=== PATIENT | male | born 1990 | race Hispanic/Latino ===

== ENCOUNTER 2023-05-12 12:07 | Emergency (ER) | payer SELFPAY ==
[2023-05-12] MEDS ORDERED: KETOROLAC 30 MG/ML INJ ONE (12:50)
[2023-05-12] MEDS ORDERED: ACETAMINOPHEN 500 MG TAB ONE (12:50)
[2023-05-12] MEDS ORDERED: DIPHENHYDRAMINE 50 MG/ML VIAL ONE (12:50)
[2023-05-12] MEDS ORDERED: METOCLOPRAMIDE 10 MG/2mL INJ ONE (12:50)
[2023-05-12] MEDS ORDERED: NA CHLORIDE 0.9% 1,000 ML ONE (12:50)
--- NOTE | 2023-05-12 13:02 | RAD REPORT ---
EXAM DESCRIPTION: CT - Head Brain Wo Cont - 05/12/2023 12:36 pm CLINICAL HISTORY: Headache COMPARISON: None TECHNIQUE: Computed axial tomography of the head was obtained. IV contrast was not requested. All CT scans are performed using dose optimization technique as appropriate and may include automated exposure control or mA/KV adjustment according to patient size. FINDINGS: An intracranial bleed is not seen The ventricles are normal in caliber No extra-axial fluid collection is noted. No significant hypodensity within the brain noted Small amount of fluid right maxillary sinus. Mucous retention cyst left maxillary sinus Sub centimeter right occipital scalp lesion is nonspecific IMPRESSION: No acute intracranial abnormality is seen If patient's symptoms persist MRI of the brain would be recommended Fluid within the right maxillary sinus may indicate acute sinusitis
--- NOTE | 2023-05-12 13:24 | EDPHYS ---
Physician Documentation [facility] Name: Ramon Almonte Age: 33 yrs Sex: Male : 1990 Arrival Date: 05/12/2023 Time: 12:07 Bed 18 Private MD: ED Physician Hernando Albarran HPI: 05/12 12:34 This 33 yrs old Male presents to ER via Ambulatory with complaints of Headache.rt 12:34 Patient presents to the ED with intermittent right-sided headache behind his right eye rt for the past 3 days. Patient obtained modest relief with taking Excedrin, Sudafed. He states that he is developing a sinus headache. Reports mild nausea. Denies other acute complaints at this time. Denies neck stiffness. States that the pain persisted to today prompting him to come to the ED for further evaluation. Symptoms are moderate severity, nonradiating, moderate in severity, no other aggravating alleviating factors. Historical: - Allergies: 12:16 No Known Allergies; hb - Home Meds: 12:16 None [Active]; hb - PMHx: 12:16 None; hb - PSHx: 12:16 None; hb - Immunization history:: Adult Immunizations up to date. - Social history:: Smoking status: Patient denies any tobacco usage or history of. - Family history:: not pertinent. ROS: 12:34 Constitutional: Negative for fever, chills, and weight loss, Cardiovascular: Negative rt for chest pain, palpitations, and edema, Respiratory: Negative for shortness of breath, cough, wheezing, and pleuritic chest pain, MS/Extremity: Negative for injury and deformity, Skin: Negative for injury, rash, and discoloration, Neuro: Negative for headache, weakness, numbness, tingling, and seizure, Psych: Negative for depression, anxiety, suicide ideation, homicidal ideation, and hallucinations. 12:34 Abdomen/GI: Positive for nausea, Negative for abdominal pain. 12:34 Neuro: Positive for headache, Negative for altered mental status. Exam: 12:34 Constitutional: This is a well developed, well nourished patient who is awake, alert, rt and in no acute distress. Head/Face: Normocephalic, atraumatic. Chest/axilla: Normal chest wall appearance and motion. Nontender with no deformity. No lesions are appreciated. Cardiovascular: Regular rate and rhythm with a normal S1 and S2. No gallops, murmurs, or rubs. Normal PMI, no JVD. No pulse deficits. Respiratory: Lungs have equal breath sounds bilaterally, clear to auscultation and percussion. No rales, rhonchi or wheezes noted. No increased work of breathing, no retractions or nasal flaring. Abdomen/GI: Soft, non-tender, with normal bowel sounds. No distension or tympany. No guarding or rebound. No evidence of tenderness throughout. Skin: Warm, dry with normal turgor. Normal color with no rashes, no lesions, and no evidence of cellulitis. MS/ Extremity: Pulses equal, no cyanosis. Neurovascular intact. Full, normal range of motion. Neuro: Awake and alert, GCS 15, oriented to person, place, time, and situation. Cranial nerves II-XII grossly intact. Motor strength 5/5 in all extremities. Sensory grossly intact. Cerebellar exam normal. Normal gait. Psych: Awake, alert, with orientation to person, place and time. Behavior, mood, and affect are within normal limits. Vital Signs: 12:13 BP 151 / 96; Pulse 65; Resp 16; Temp 97.8(TE); Pulse Ox 100% on R/A; Weight 90.72 kg; hb Height 5 ft. 7 in. ; Pain 10/10; 12:45 BP 130 / 80; Pulse 71; Resp 17; Pulse Ox 100% on R/A; Pain 7/10; me1 13:43 BP 122 / 65; Pulse 61; Resp 16; Pulse Ox 100% on R/A; Pain 4/10; me1 12:13 Body Mass Index 31.32 (90.72 kg, 170.18 cm) hb 12:13 Pain Scale: Adult hb 12:45 Pain Scale: Adult me1 13:43 Pain Scale: Adult me1 MDM: 12:17 Patient medically screened. rt 13:36 Differential diagnosis: Intracranial hemorrhage, sinus headache, cluster headache, rt migraine headache, tension headache. Data reviewed: vital signs, nurses notes, radiologic studies. Independent interpretation of the following test(s) in the Emergency Department CT Scan: My interpretation is No hemorrhage seen on monitor rotation of the CT scan images. Test considered but Not performed: Labs: Stable vital signs, benign physical examination, neck supple, full range of motion, no meningismus. Low suspicion for meningitis, encephalitis, lumbar puncture not indicated. Counseling: I had a detailed discussion with the patient and/or guardian regarding the historical points, exam findings, and any diagnostic results supporting the discharge/admit diagnosis, radiology results, the need for outpatient follow up, to return to the emergency department if symptoms worsen or persist or if there are any questions or concerns that arise at home. Response to treatment: the patient's symptoms have markedly improved after treatment. 05/12 12:23 Order name: CT Head Brain wo Cont; Complete Time: 13:07 rt Administered Medications: 12:59 Drug: metoCLOPramide IVP 10 mg Route: IVP; Site: right antecubital; me1 13:27 Follow up: Response: No adverse reaction; Pain is decreased me1 12:59 Drug: NS 0.9% IV 1000 ml Route: IV; Rate: 1 bolus; Site: right antecubital; me1 13:49 Follow up: IV Status: Completed infusion; IV Intake: 100ml me1 12:59 Drug: Ketorolac IVP 15 mg Route: IVP; Site: right antecubital; me1 13:27 Follow up: Response: No adverse reaction; Pain is decreased me1 12:59 Drug: diphenhydrAMINE IVP 25 mg Route: IVP; Site: right antecubital; me1 13:27 Follow up: Response: No adverse reaction; Pain is decreased me1 12:59 Not Given (Patient Refused): Acetaminophen PO 1000 mg PO once me1 Disposition Summary: 05/12/23 13:23 Discharge Ordered Location: Home rt Problem: new rt Symptoms: have improved rt Condition: Stable rt Diagnosis - Acute maxillary sinusitis rt - Headache rt Followup: rt - With: Private Physician - When: 2 - 3 days - Reason: Discharge Instructions: - Discharge Summary Sheet rt - Sinus Headache rt Forms: - Medication Reconciliation Form rt - Thank You Letter rt - Antibiotic Education rt - Prescription Opioid Use rt - Patient Portal Instructions rt - Leadership Thank You Letter rt Prescriptions: - azithromycin 250 mg Oral tablet - take 1 dose pack by ORAL route as directed on dose pack For 250 mg dose pack: rt take 500 mg today (day 1), then 250 mg for 4 days (days 2-5); 6 tablet; Refills: 0, Product Selection Permitted Signatures: Dispatcher [employer] Zina Haley, BRIANNA RN hb Hernando Albarran MD MD rt Lelsi Mai RN RN me1
--- NOTE | 2023-05-12 13:24 | ER ---
Nurse's Notes [facility] Name: Ramon Almonte Age: 33 yrs Sex: Male : 1990 Arrival Date: 05/12/2023 Time: 12:07 Bed 18 Private MD: Diagnosis: Acute maxillary sinusitis;Headache Presentation: 05/12 12:13 Chief complaint: Headache behind right eye that radiates to right side of head x 4 hb days, unrelieved Excedrin and Sudafed. Coronavirus screen: Client presents with at least one sign or symptom that may indicate coronavirus-19. Provider contacted for isolation considerations. Ebola Screen: No symptoms or risks identified at this time. Risk Assessment: Do you want to hurt yourself or someone else? Patient reports no desire to harm self or others. Onset of symptoms was May 08, 2023. 12:13 Method Of Arrival: Ambulatory hb 12:13 Acuity: CHUCK 4 hb 12:13 Initial Sepsis Screen: Does the patient meet any 2 criteria? No. Patient's initial hb sepsis screen is negative. Does the patient have a suspected source of infection? No. Patient's initial sepsis screen is negative. Historical: - Allergies: 12:16 No Known Allergies; hb - Home Meds: 12:16 None [Active]; hb - PMHx: 12:16 None; hb - PSHx: 12:16 None; hb - Immunization history:: Adult Immunizations up to date. - Social history:: Smoking status: Patient denies any tobacco usage or history of. - Family history:: not pertinent. Screenin:08 [facility] ED Fall Risk Assessment (Adult) Score/Fall Risk Level 0 - 2 = Low Risk. Abuse me1 screen: Denies threats or abuse. Nutritional screening: No deficits noted. Tuberculosis screening: No symptoms or risk factors identified. 13:08 [facility] ED Fall Risk Assessment (Adult) History of falling in the last 3 months, me1 including since admission No falls in past 3 months (0 pts) Confusion or Disorientation No (0 pts) Intoxicated or Sedated No (0 pts) Impaired Gait No (0 pts) Mobility Assist Device Used No (0 pt) Altered Elimination No (0 pt) Score/Fall Risk Level 0 - 2 = Low Risk Oriented to surroundings, Maintained a safe environment, Hourly rounding (assess needs \T\ fall precautionary measures) done. Assessment: 12:19 Reassessment: Placed on 5L NC per Dr. Albarran. hb 13:08 General: Appears uncomfortable, well groomed, well developed, well nourished, Behavior me1 is calm, cooperative, appropriate for age, Reports Headache behind right eye that comes and goes x 4 days with no relief. Denies fever, feeling ill, fatigue, chills. Pain: Complains of pain in head Pain currently is 7 out of 10 on a pain scale. Quality of pain is described as sharp, Pain began 4 days ago Is intermittent. Neuro: Level of Consciousness is awake, alert, obeys commands, Oriented to person, place, time, situation, Appropriate for age. Cardiovascular: Capillary refill < 3 seconds Patient's skin is warm and dry. Respiratory: Airway is patent Respiratory effort is even, unlabored, Respiratory pattern is regular, symmetrical. Vital Signs: 12:13 BP 151 / 96; Pulse 65; Resp 16; Temp 97.8(TE); Pulse Ox 100% on R/A; Weight 90.72 kg; hb Height 5 ft. 7 in. ; Pain 10/10; 12:45 BP 130 / 80; Pulse 71; Resp 17; Pulse Ox 100% on R/A; Pain 7/10; me1 13:43 BP 122 / 65; Pulse 61; Resp 16; Pulse Ox 100% on R/A; Pain 4/10; me1 12:13 Body Mass Index 31.32 (90.72 kg, 170.18 cm) hb 12:13 Pain Scale: Adult hb 12:45 Pain Scale: Adult me1 13:43 Pain Scale: Adult me1 ED Course: 12:11 Patient arrived in ED. mg5 12:13 Hernando Albarran MD is Attending Physician. rt 12:15 Triage completed. hb 12:15 Arm band placed on. hb 12:19 Znia Murray, RN is Primary Nurse. hb 12:36 CT Head Brain wo Cont In Process Unspecified. EDMS 12:59 Inserted saline lock: 20 gauge in right antecubital area, using aseptic technique. me1 13:08 Patient has correct armband on for positive identification. Bed in low position. Call me1 light in reach. Side rails up X 1. Provided Education on: POC. Verbalized understanding. . 13:08 No provider procedures requiring assistance completed. me1 13:48 IV discontinued, intact, bleeding controlled, No redness/swelling at site. Pressure me1 dressing applied. Administered Medications: 12:59 Drug: metoCLOPramide IVP 10 mg Route: IVP; Site: right antecubital; me1 13:27 Follow up: Response: No adverse reaction; Pain is decreased me1 12:59 Drug: NS 0.9% IV 1000 ml Route: IV; Rate: 1 bolus; Site: right antecubital; me1 13:49 Follow up: IV Status: Completed infusion; IV Intake: 100ml me1 12:59 Drug: Ketorolac IVP 15 mg Route: IVP; Site: right antecubital; me1 13:27 Follow up: Response: No adverse reaction; Pain is decreased me1 12:59 Drug: diphenhydrAMINE IVP 25 mg Route: IVP; Site: right antecubital; me1 13:27 Follow up: Response: No adverse reaction; Pain is decreased me1 12:59 Not Given (Patient Refused): Acetaminophen PO 1000 mg PO once me1 Medication: 13:08 VIS not applicable for this client. me1 Intake: 13:49 IV: 100ml; Total: 100ml. me1 Outcome: 13:23 Discharge ordered by MD. rt 13:48 Discharged to home with significant other. me1 13:48 Condition: stable 13:48 Discharge instructions given to patient, significant other, Instructed on discharge instructions, follow up and referral plans. medication usage, Demonstrated understanding of instructions, follow-up care, medications, Prescriptions given X 1. 13:50 Patient left the ED. me1 Signatures: Dispatcher [employer] EDZina Castillo RN RN hb Hernando Albarran MD MD rt Lesli Mai RN RN me1 Karon Carroll mg5 Corrections: (The following items were deleted from the chart) 12:16 12:13 BP 151 / 96; Pulse 65bpm; Resp 16bpm; Pulse Ox 100% RA; Temp 97.8F Temporal; hb hb
[2023-05-12 14:13] VITALS: TEMP 97.8; O2SAT 100
[2023-05-12 14:16] VITALS: BP 122/65
== END 2023-05-12 13:50 | disposition home or self-care (01) ==
LOC: ER 12:07
DX: J01.00 Acute maxillary sinusitis, unspecified (principal)
CPT/HCPCS: 70450; 96361; 96374; 96375; 99284; J1200; J2765; J7030